=== PATIENT | female | born 1985 | race African-American/Black ===

== ENCOUNTER 2016-10-27 00:54 | Emergency (ER) | payer OTHER ==
[~2016-10-27 00:54] MED LIST: ABILIFY PO; ATI2I PO; BACO TOP; BENADRYL ALLERG25 M1; CIPRO500 MG PO; COL100 PO; COLACE100 MG PO; DIL2 PO; DIL4 PO; DILAUDID8 MG PO; DUR75P TOP; ELA25 PO; FENTANYL PO; HIBICLENS118 ML TOP; LAC PO; LEXAPRO PO; MIN2 PO; NEU100 PO; NEURONTIN600 MG PO; NOR10T PO; PANTOPRAZOLE SO40 M1 PO; PEP20 PO; PER PO; TRA50 PO; VAL10 PO; ZOFRAN ODT4 MG SL; [UNRECOGNIZED DRUG - CODE] IM
[2016-10-27 04:32] LABS: BASOPHIL % 1.7 % (0-2); PLATELET COUNT 170 x10^3mcL (130-400); RED CELL DISTRIBUTION WIDTH 17.1 % (11.5-14.5)
[2016-10-27 04:49] LABS: CARBON DIOXIDE 23.7 mmol/L (21-32); CHLORIDE SERUM 104 mmol/L (98-107); CREATININE SERUM 0.7 mg/dL (0.6-1.0); GFR1 > 60 mL/min; GLUCOSE SERUM 92 mg/dL (74-106); POTASSIUM SERUM 4.1 mmol/L (3.5-5.1); SODIUM SERUM 137 mmol/L (136-145)
[2016-10-27 04:54] LABS: ALKALINE PHOSPHATASE 38 U/L (46-116); ALT/SGPT 13 U/L (14-59); AST/SGOT 19 U/L (15-37); BILIRUBIN TOTAL 0.39 mg/dL (0.20-1.00); LIPASE 197 IU/L (73-393); TOTAL PROTEIN, SERUM 7.7 g/dL (6.4-8.2)
[2016-10-27 04:55] LABS: AMYLASE 119 U/L (25-115)
[2016-10-27 05:32] LABS: UA SPECIFIC GRAVITY >=1.030 (1.005-1.035); microscopic required? YES; urine erythrocyte 3+ (NEGATIVE)
[2016-10-27 07:15] VITALS: BP 126/80
== END 2016-10-27 07:15 | disposition home or self-care (01) ==
LOC: ED 00:54
PROVIDERS: Emergency Medicine
DX: G89.29 Other chronic pain (principal); R10.9 Unspecified abdominal pain; D50.9 Iron deficiency anemia, unspecified
CPT/HCPCS: 83880; J1200; J2405; J3010; Q0162; Q0163

== ENCOUNTER 2017-05-30 15:30 | Emergency (ER) | payer OTHER ==
[2017-05-30 17:00] VITALS: BP 111/77
[2017-05-30 17:05] LABS: BASOPHIL % 0.4 % (0-2); PLATELET COUNT 174 x10^3mcL (130-400)
[2017-05-30 17:08] LABS: RED CELL DISTRIBUTION WIDTH 18.9 % (11.5-14.5)
[2017-05-30 17:14] LABS: CALCIUM 9.4 mg/dL (8.5-10.1); CARBON DIOXIDE 25.1 mmol/L (21-32); CHLORIDE SERUM 108 mmol/L (98-107); CREATININE SERUM 0.8 mg/dL (0.6-1.0); GFR1 > 60 mL/min; GLUCOSE SERUM 94 mg/dL (74-106); POTASSIUM SERUM 3.7 mmol/L (3.5-5.1); SODIUM SERUM 140 mmol/L (136-145)
[2017-05-30 17:19] LABS: ALBUMIN 3.7 g/dL (3.4-5.0); ALKALINE PHOSPHATASE 40 U/L (46-116); ALT/SGPT 14 U/L (14-59); AST/SGOT 13 U/L (15-37); BILIRUBIN TOTAL 0.37 mg/dL (0.20-1.00)
== END 2017-05-30 18:30 | disposition home or self-care (01) ==
LOC: ED 15:30
PROVIDERS: Emergency Medicine
DX: G89.29 Other chronic pain (principal); R10.2 Pelvic and perineal pain; R07.89 Other chest pain; D50.9 Iron deficiency anemia, unspecified; D72.819 Decreased white blood cell count, unspecified; R06.00 Dyspnea, unspecified; Z88.6 Allergy status to analgesic agent; Z88.5 Allergy status to narcotic agent; Z88.8 Allergy status to other drugs, medicaments and biological substances
CPT/HCPCS: 36415; 83880

== ENCOUNTER 2017-10-09 10:49 | Emergency (ER) | payer OTHER ==
[~2017-10-09] VITALS: Ht 170.2 cm; Wt 69.9 kg
[2017-10-09 10:53] VITALS: Ht 170.2 cm; Wt 69.9 kg
[2017-10-09 11:49] LABS: PLATELET COUNT 340 x10^3mcL (130-400)
[2017-10-09 11:54] LABS: RED CELL DISTRIBUTION WIDTH 15.9 % (11.5-14.5)
[2017-10-09 12:02] LABS: CALCIUM 8.4 mg/dL (8.5-10.1); CARBON DIOXIDE 27.3 mmol/L (21-32); CHLORIDE SERUM 104 mmol/L (98-107); CREATININE SERUM 0.6 mg/dL (0.6-1.0); GFR1 > 60 mL/min; GLUCOSE SERUM 81 mg/dL (74-106); SODIUM SERUM 138 mmol/L (136-145)
[2017-10-09 12:06] LABS: ALBUMIN 3.4 g/dL (3.4-5.0); ALKALINE PHOSPHATASE 30 U/L (46-116); ALT/SGPT 13 U/L (14-59); AST/SGOT 13 U/L (15-37); BILIRUBIN TOTAL 0.35 mg/dL (0.20-1.00); LIPASE 143 IU/L (73-393)
[2017-10-09 12:26] LABS: BAND NEUTROPHIL 0 % (0-10); BASOPHIL 0 % (0-2); MONOCYTE 7 % (0-7); SEGMENTED NEUTROPHILS 43 % (37-75)
[2017-10-09 12:27] LABS: rbc morphology (normal/abnorm) ABNORMAL (NORMAL)
[2017-10-09 12:28] LABS: target cell (codocyte) 1+
[2017-10-09 13:36] VITALS: BP 141/88
== END 2017-10-09 14:09 | disposition home or self-care (01) ==
LOC: ED 10:49
PROVIDERS: Emergency Medicine
DX: G89.29 Other chronic pain (principal); R10.11 Right upper quadrant pain
CPT/HCPCS: 36415; J1200; J3010; J7030; Q0092

== ENCOUNTER 2017-12-11 00:38 | Emergency (ER) | payer OTHER ==
[~2017-12-11] VITALS: Ht 172.7 cm; Wt 71.7 kg
[2017-12-11 01:32] LABS: BASOPHIL % 0.5 % (0-2); PLATELET COUNT 236 x10^3mcL (130-400)
[2017-12-11 01:34] LABS: RED CELL DISTRIBUTION WIDTH 19.9 % (11.5-14.5)
[2017-12-11 01:42] LABS: CALCIUM 9.1 mg/dL (8.5-10.1); CARBON DIOXIDE 23.5 mmol/L (21-32); CHLORIDE SERUM 102 mmol/L (98-107); CREATININE SERUM 0.9 mg/dL (0.6-1.0); GFR1 > 60 mL/min; GLUCOSE SERUM 91 mg/dL (74-106); POTASSIUM SERUM 4.1 mmol/L (3.5-5.1); SODIUM SERUM 137 mmol/L (136-145)
[2017-12-11 01:47] LABS: ALBUMIN 4.2 g/dL (3.4-5.0); ALKALINE PHOSPHATASE 50 U/L (46-116); ALT/SGPT 16 U/L (14-59); AST/SGOT 22 U/L (15-37); BILIRUBIN TOTAL 0.51 mg/dL (0.20-1.00)
[2017-12-11 01:54] LABS: TOTAL PROTEIN, SERUM 8.5 g/dL (6.4-8.2)
[2017-12-11 04:49] VITALS: BP 115/76
== END 2017-12-11 04:49 | disposition home or self-care (01) ==
LOC: ED 00:38
PROVIDERS: Emergency Medicine
DX: G89.29 Other chronic pain (principal); R10.31 Right lower quadrant pain; R11.0 Nausea; R06.02 Shortness of breath; Z88.5 Allergy status to narcotic agent; Z88.6 Allergy status to analgesic agent
CPT/HCPCS: J2550; J3010; J3490

== ENCOUNTER 2018-03-19 18:40 | Emergency (ER) | payer OTHER ==
[2018-03-19 18:56] VITALS: Ht 170.2 cm
[2018-03-19 20:17] LABS: PLATELET COUNT 290 x10^3mcL (130-400)
[2018-03-19 20:27] LABS: BASOPHIL % 0 % (0-2); RED CELL DISTRIBUTION WIDTH 20.5 % (11.5-14.5)
[2018-03-19 20:29] LABS: CALCIUM 9.1 mg/dL (8.5-10.1); CARBON DIOXIDE 21.9 mmol/L (21-32); CHLORIDE SERUM 103 mmol/L (98-107); CREATININE SERUM 0.9 mg/dL (0.6-1.0); GFR1 > 60 mL/min; GLUCOSE SERUM 128 mg/dL (74-106); POTASSIUM SERUM 3.7 mmol/L (3.5-5.1); SODIUM SERUM 137 mmol/L (136-145)
[2018-03-19 20:35] LABS: ALBUMIN 3.3 g/dL (3.4-5.0); ALKALINE PHOSPHATASE 38 U/L (46-116); ALT/SGPT 17 U/L (14-59); AST/SGOT 19 U/L (15-37); BILIRUBIN TOTAL 0.44 mg/dL (0.20-1.00); LIPASE 250 IU/L (73-393); TOTAL PROTEIN, SERUM 7.2 g/dL (6.4-8.2)
[2018-03-19 20:45] LABS: rbc morphology (normal/abnorm) ABNORMAL (NORMAL)
[2018-03-19 22:13] VITALS: BP 146/87
== END 2018-03-19 22:13 | disposition home or self-care (01) ==
LOC: ED 18:40
PROVIDERS: Emergency Medicine
DX: G89.29 Other chronic pain (principal); R10.11 Right upper quadrant pain; D64.89 Other specified anemias; D72.818 Other decreased white blood cell count; F41.9 Anxiety disorder, unspecified; F32.9 Major depressive disorder, single episode, unspecified; F43.10 Post-traumatic stress disorder, unspecified; I27.20 Pulmonary hypertension, unspecified; N80.9 Endometriosis, unspecified; J18.9 Pneumonia, unspecified organism; Z88.5 Allergy status to narcotic agent; Z88.6 Allergy status to analgesic agent; Z88.8 Allergy status to other drugs, medicaments and biological substances; Z88.1 Allergy status to other antibiotic agents
CPT/HCPCS: 36415; J2270

== ENCOUNTER 2018-07-18 11:40 | Emergency (ER) | payer OTHER ==
[~2018-07-18] VITALS: Ht 170.2 cm; Wt 68.9 kg
[2018-07-18 12:06] VITALS: Ht 170.2 cm; Wt 68.9 kg
[2018-07-18 13:49] LABS: AMPHETAMINE QUAL UR NONE DETECTED (See below)
[2018-07-18 14:11] LABS: CALCIUM 9.4 mg/dL (8.5-10.1); CARBON DIOXIDE 21.2 mmol/L (21-32); CHLORIDE SERUM 103 mmol/L (98-107); CREATININE SERUM 0.8 mg/dL (0.6-1.0); GFR1 > 60 mL/min; GLUCOSE SERUM 85 mg/dL (74-106); SODIUM SERUM 137 mmol/L (136-145)
[2018-07-18 14:14] VITALS: BP 135/81
[2018-07-18 14:15] LABS: ALBUMIN 4.1 g/dL (3.4-5.0); ALKALINE PHOSPHATASE 50 U/L (46-116); ALT/SGPT 18 U/L (14-59); AST/SGOT 17 U/L (15-37); BILIRUBIN TOTAL 0.9 mg/dL (0.20-1.00)
[2018-07-18 14:19] LABS: BASOPHIL % 0.6 % (0-2); PLATELET COUNT 242 x10^3mcL (130-400); TOTAL PROTEIN, SERUM 8.4 g/dL (6.4-8.2)
[2018-07-18 14:20] LABS: RED CELL DISTRIBUTION WIDTH 16.7 % (11.5-14.5)
== END 2018-07-18 14:34 | disposition home or self-care (01) ==
LOC: ED 11:40
PROVIDERS: Emergency Medicine
DX: F41.9 Anxiety disorder, unspecified (principal); R07.89 Other chest pain; G89.29 Other chronic pain; I27.20 Pulmonary hypertension, unspecified; N80.9 Endometriosis, unspecified; F32.9 Major depressive disorder, single episode, unspecified; J18.9 Pneumonia, unspecified organism; Z88.6 Allergy status to analgesic agent; Z88.5 Allergy status to narcotic agent; Z88.8 Allergy status to other drugs, medicaments and biological substances
CPT/HCPCS: 36415; 36600; 83880; Q0092